=== PATIENT | male | born 1950 | race Caucasian/White ===

== ENCOUNTER 2020-08-28 13:42 | Emergency (ER) | payer OTHER ==
[~2020-08-28] VITALS: Wt 131.1 kg
== END 2020-08-28 15:47 | disposition home or self-care (01) ==
LOC: ED 13:42
DX: S01.21XA Laceration without foreign body of nose, initial encounter (principal); S69.91XA Unspecified injury of right wrist, hand and finger(s), initial encounter; E04.1 Nontoxic single thyroid nodule; M54.2 Cervicalgia; Z91.041 Radiographic dye allergy status; Z98.890 Other specified postprocedural states; W17.89XA Other fall from one level to another, initial encounter; Y93.89 Activity, other specified; Y92.89 Other specified places as the place of occurrence of the external cause; Y99.8 Other external cause status